=== PATIENT | female | born 1995 | race Caucasian/White ===

== ENCOUNTER 2018-12-11 18:24 | Emergency (ER) | payer SELFPAY ==
[~2018-12-11] VITALS: Ht 154.9 cm; Wt 68.2 kg
[~2018-12-11 18:24] MED LIST: NOCURR
[2018-12-11] MEDS ORDERED: ACETAMINOPHEN 500 MG TABLET PO ONE (21:30)
[2018-12-11 23:15] VITALS: BP 127/67
== END 2018-12-11 23:24 | disposition home or self-care (01) ==
LOC: EMS 18:26
DX: S09.90XA Unspecified injury of head, initial encounter (principal); W01.0XXA Fall on same level from slipping, tripping and stumbling without subsequent striking against object, initial encounter; Y93.89 Activity, other specified; Y92.89 Other specified places as the place of occurrence of the external cause; Y99.8 Other external cause status
CPT/HCPCS: 70450